=== PATIENT | male | born 1950 | race Caucasian/White ===

== ENCOUNTER 2016-04-24 13:10 | Outpatient (CLI) | payer MEDICARE, OTHER | END 2016-04-24 13:11 | disposition home or self-care (01) | DX: B35.1 Tinea unguium (principal); L03.011 Cellulitis of right finger ==

== ENCOUNTER 2016-10-08 08:00 | Outpatient (CLI) | payer MEDICARE, OTHER ==
[2016-10-08 19:11] LABS: BASOPHILS % (AUTO) 1.1 %; EOSINOPHILS # (AUTO) 0.1 10^3/uL (0.0-0.7); EOSINOPHILS % (AUTO) 2.9 %; HCT - HEMATOCRIT 32.3 % (42.0-52.0); HGB - HEMOGLOBIN 10.7 g/dL (14.0-18.0); LYMPHOCYTES # (AUTO) 0.7 10^3/uL (1.5-3.5); LYMPHOCYTES % (AUTO) 16.9 %; MEAN CORPUSCULAR HEMOGLOBIN 33.5 pg (27.0-31.0); MEAN CORPUSCULAR HGB CONC 33.1 g/dL (32.0-36.0); MEAN CORPUSCULAR VOLUME 101.1 fL (80.0-94.0); MEAN PLATELET VOLUME 9.8 fL (7.4-11.4); MONOCYTES # (AUTO) 0.5 10^3/uL (0.0-1.0); MONOCYTES % (AUTO) 10.8 %; NEUTROPHILS % (AUTO) 68.3 %; RED BLOOD COUNT 3.19 10^6/uL (4.70-6.10); RED CELL DISTRIBUTION WIDTH 13.8 % (12.0-15.0); UNCORRECTED WHITE BLOOD COUNT 4.4 x10^3/uL; WHITE BLOOD COUNT 4.4 x10^3/uL (4.8-10.8)
[2016-10-08 20:54] LABS: HEMOGLOBIN A1C 0.28 g/dL
== END 2016-10-08 08:01 | disposition home or self-care (01) ==
LOC: LAB.S 08:00
PROVIDERS: ATTEND Nurse Practitioner Family
DX: E10.9 Type 1 diabetes mellitus without complications (principal); D64.9 Anemia, unspecified; Z12.5 Encounter for screening for malignant neoplasm of prostate; N62 Hypertrophy of breast; M10.9 Gout, unspecified
CPT/HCPCS: 36415; 82043; 82728; 83036; 84403; 84550; 85025; G0103; 84153

== ENCOUNTER 2017-07-23 08:26 | Outpatient (CLI) | payer MEDICARE, OTHER ==
[2017-07-23 10:23] LABS: BASOPHILS % (AUTO) 1.3 %; EOSINOPHILS % (AUTO) 1.1 %; HGB - HEMOGLOBIN 10.8 g/dL (14.0-18.0); LYMPHOCYTES % (AUTO) 28.5 %; MEAN CORPUSCULAR HEMOGLOBIN 34.5 pg (27.0-31.0); MEAN CORPUSCULAR HGB CONC 34.8 g/dL (32.0-36.0); MEAN CORPUSCULAR VOLUME 99.2 fL (80.0-94.0); MEAN PLATELET VOLUME 8.6 fL (7.4-11.4); MONOCYTES # (AUTO) 0.5 10^3/uL (0.0-1.0); MONOCYTES % (AUTO) 13.3 %; NEUTROPHILS # (AUTO) 1.9 10^3/uL (1.5-6.6); NEUTROPHILS % (AUTO) 55.8 %; PLT - PLATELET COUNT 234 10^3/uL (130-450); RED BLOOD COUNT 3.13 10^6/uL (4.70-6.10); RED CELL DISTRIBUTION WIDTH 12.7 % (12.0-15.0); WHITE BLOOD COUNT 3.5 x10^3/uL (4.8-10.8)
[2017-07-23 10:59] LABS: ALBUMIN 4.4 g/dL (3.2-5.5); ALBUMIN/GLOBULIN RATIO 1.5 (1.0-2.2); ALKALINE PHOSPHATASE 52 IU/L (42-121); ALT ALANINE AMINOTRANSFERASE 18 IU/L (10-60); AST ASPARTATE AMINOTRANSFERASE 26 IU/L (10-42); BILIRUBIN,TOTAL 0.8 mg/dL (0.2-1.0); BUN - BLOOD UREA NITROGEN 11 mg/dL (6-20); CARBON DIOXIDE - CO2 28 mmol/L (21-32); CHLORIDE 94 mmol/L (101-111); CHOL/HDL RATIO 4.9 (<5.0); CHOLESTEROL 148 mg/dL; CREATININE 0.4 mg/dL (0.6-1.2); GFR - MDRD 214 (>89); GLUCOSE 63 mg/dL (70-100); HDL CHOLESTEROL 30 mg/dL; LDL CHOLESTEROL,CALCULATED 107 mg/dL; LDL/HDL RATIO 3.6 (<3.6); SODIUM 127 mmol/L (135-145); TOTAL PROTEIN 7.4 g/dL (6.7-8.2); VLDL CHOLESTEROL 11 mg/dL
[2017-07-23 11:26] LABS: HB2 TOTAL 11.8 g/dL; HEMOGLOBIN A1C 0.36 g/dL; HEMOGLOBIN A1C % 4.9 % (4.6-6.2)
== END 2017-07-23 08:27 | disposition home or self-care (01) ==
LOC: LAB.F 08:26
PROVIDERS: ATTEND Nurse Practitioner Family
DX: E10.9 Type 1 diabetes mellitus without complications (principal); I51.9 Heart disease, unspecified; D53.1 Other megaloblastic anemias, not elsewhere classified
CPT/HCPCS: 36415; 80053; 80061; 83036; 83721; 85025

== ENCOUNTER 2017-07-30 07:40 | Outpatient (CLI) | payer MEDICARE, OTHER | END 2017-07-30 07:41 | disposition home or self-care (01) | LOC: LAB.F 07:40 | PROVIDERS: ATTEND Nurse Practitioner Family | DX: E87.1 Hypo-osmolality and hyponatremia (principal); D53.9 Nutritional anemia, unspecified | CPT/HCPCS: 83935; 84300 ==

== ENCOUNTER 2017-08-02 08:00 | Outpatient (CLI) | payer MEDICARE, OTHER | END 2017-08-02 23:59 | LOC: LAB.R 08:00 | PROVIDERS: ATTEND Nurse Practitioner Family | DX: D53.9 Nutritional anemia, unspecified (principal) | CPT/HCPCS: 82270 ==

== ENCOUNTER 2017-08-12 10:50 | Outpatient (CLI) | payer MEDICARE, OTHER ==
[2017-08-12 19:10] LABS: BUN - BLOOD UREA NITROGEN 12 mg/dL (6-20); CALCIUM 8.9 mg/dL (8.5-10.3); CARBON DIOXIDE - CO2 28 mmol/L (21-32); CHLORIDE 95 mmol/L (101-111); CREATININE 0.5 mg/dL (0.6-1.2); GFR - MDRD 165 (>89); GLUCOSE 72 mg/dL (70-100); SODIUM 129 mmol/L (135-145)
== END 2017-08-12 10:51 | disposition home or self-care (01) ==
LOC: LAB.F 10:50
PROVIDERS: ATTEND Nurse Practitioner Family
DX: N62 Hypertrophy of breast (principal); E29.1 Testicular hypofunction; Z13.29 Encounter for screening for other suspected endocrine disorder; E87.1 Hypo-osmolality and hyponatremia
CPT/HCPCS: 36415; 80048; 84403; 84443

== ENCOUNTER 2017-09-02 09:48 | Outpatient (CLI) | payer MEDICARE, OTHER ==
[2017-09-02 18:03] LABS: CALCIUM 9.3 mg/dL (8.5-10.3); CREATININE 0.5 mg/dL (0.6-1.2); URIC ACID 4.8 mg/dL (2.6-7.2)
== END 2017-09-02 09:49 | disposition home or self-care (01) ==
LOC: LAB.F 09:48
PROVIDERS: ATTEND Nurse Practitioner Family
DX: E87.1 Hypo-osmolality and hyponatremia (principal); M10.9 Gout, unspecified
CPT/HCPCS: 36415; 80048; 84550

== ENCOUNTER 2018-01-22 07:25 | Outpatient (CLI) | payer MEDICARE, OTHER ==
[2018-01-22 12:00] LABS: HEMOGLOBIN A1C 0.16 g/dL
[2018-01-22 13:13] LABS: HEMOGLOBIN A1C % < 4.0 % (4.6-6.2)
[2018-01-22 13:17] LABS: ESTIMATED AVERAGE GLUCOSE < 68 (70-100)
== END 2018-01-22 07:26 | disposition home or self-care (01) ==
LOC: LAB.F 07:25
PROVIDERS: ATTEND Nurse Practitioner Family
DX: E10.9 Type 1 diabetes mellitus without complications (principal)
CPT/HCPCS: 36415; 83036

== ENCOUNTER 2018-02-18 10:20 | Outpatient (CLI) | payer MEDICARE, OTHER | END 2018-02-18 10:21 | disposition home or self-care (01) | LOC: LAB.R 10:20 | PROVIDERS: ATTEND Nurse Practitioner Family | DX: E10.9 Type 1 diabetes mellitus without complications (principal) | CPT/HCPCS: 82043 ==

== ENCOUNTER 2018-03-31 08:24 | Outpatient (CLI) | payer MEDICARE, OTHER ==
[2018-03-31 18:47] LABS: HB2 TOTAL 11.1 g/dL; HEMOGLOBIN A1C 0.23 g/dL
== END 2018-03-31 23:59 | disposition home or self-care (01) ==
LOC: LAB.S 08:24
PROVIDERS: ATTEND Nurse Practitioner
DX: R53.83 Other fatigue (principal); D53.9 Nutritional anemia, unspecified; E10.9 Type 1 diabetes mellitus without complications
CPT/HCPCS: 36415; 82306; 82607; 83036

== ENCOUNTER 2018-08-11 08:07 | Outpatient (CLI) | payer MEDICARE, OTHER ==
[2018-08-11 18:48] LABS: CALCIUM 8.9 mg/dL (8.5-10.3); CREATININE 0.5 mg/dL (0.6-1.2)
[2018-08-11 20:02] LABS: HB2 TOTAL 10.9 g/dL; HEMOGLOBIN A1C 0.32 g/dL; HEMOGLOBIN A1C % 4.8 % (4.6-6.2)
== END 2018-08-11 08:08 | disposition home or self-care (01) ==
LOC: LAB.F 08:07
PROVIDERS: ATTEND Nurse Practitioner
DX: E10.9 Type 1 diabetes mellitus without complications (principal); E29.1 Testicular hypofunction
CPT/HCPCS: 36415; 80048; 82043; 83036; 84403

== ENCOUNTER 2018-11-20 06:51 | Outpatient (CLI) | payer MEDICARE, OTHER ==
[2018-11-20 10:34] LABS: ALBUMIN 4.1 g/dL (3.2-5.5); ALBUMIN/GLOBULIN RATIO 1.2 (1.0-2.2); ALKALINE PHOSPHATASE 70 IU/L (42-121); ALT ALANINE AMINOTRANSFERASE 20 IU/L (10-60); AST ASPARTATE AMINOTRANSFERASE 27 IU/L (10-42); BILIRUBIN,TOTAL 0.7 mg/dL (0.2-1.0); BUN - BLOOD UREA NITROGEN 16 mg/dL (6-20); CALCIUM 9.3 mg/dL (8.5-10.3); CARBON DIOXIDE - CO2 27 mmol/L (21-32); CHLORIDE 98 mmol/L (101-111); CHOL/HDL RATIO 3.5 (<5.0); CHOLESTEROL 127 mg/dL; CREATININE 0.6 mg/dL (0.6-1.2); GFR - MDRD 134 (>89); GLUCOSE 99 mg/dL (70-100); HDL CHOLESTEROL 36 mg/dL; LDL CHOLESTEROL,CALCULATED 82 mg/dL; LDL/HDL RATIO 2.3 (<3.6); SODIUM 135 mmol/L (135-145); TOTAL PROTEIN 7.5 g/dL (6.7-8.2); VLDL CHOLESTEROL 9 mg/dL
[2018-11-20 10:45] LABS: HB2 TOTAL 10.4 g/dL; HEMOGLOBIN A1C 0.37 g/dL; HEMOGLOBIN A1C % 5.4 % (4.6-6.2)
[2018-11-20 11:00] LABS: CREATININE,URINE 22.7 mg/dL
[2018-11-20 11:02] LABS: MICROALBUMIN,URINE < 0.2 mg/dL (0-300.0)
== END 2018-11-20 06:52 | disposition home or self-care (01) ==
LOC: LAB.S 06:51
PROVIDERS: ATTEND Registered Nurse
DX: E10.9 Type 1 diabetes mellitus without complications (principal)
CPT/HCPCS: 36415; 80053; 80061; 82043; 82570; 83036; 83721; 84443

== ENCOUNTER 2019-10-13 06:58 | Outpatient (CLI) | payer MEDICARE, OTHER ==
[2019-10-13 15:23] LABS: BASOPHILS % (AUTO) 0.5 %; HGB - HEMOGLOBIN 9.7 g/dL (14.0-18.0); LYMPHOCYTES # (AUTO) 0.7 10^3/uL (1.5-3.5); LYMPHOCYTES % (AUTO) 18.3 %; MEAN CORPUSCULAR HEMOGLOBIN 34.3 pg (27.0-31.0); MEAN CORPUSCULAR HGB CONC 34.4 g/dL (32.0-36.0); MEAN CORPUSCULAR VOLUME 99.6 fL (80.0-94.0); MONOCYTES # (AUTO) 0.5 10^3/uL (0.0-1.0); MONOCYTES % (AUTO) 11.8 %; NEUTROPHILS # (AUTO) 2.6 10^3/uL (1.5-6.6); NEUTROPHILS % (AUTO) 68.1 %; PLT - PLATELET COUNT 232 10^3/uL (130-450); RED BLOOD COUNT 2.83 10^6/uL (4.70-6.10); RED CELL DISTRIBUTION WIDTH 11.9 % (12.0-15.0); WHITE BLOOD COUNT 3.8 x10^3/uL (4.8-10.8)
[2019-10-13 15:52] LABS: ALBUMIN 4.1 g/dL (3.2-5.5); ALBUMIN/GLOBULIN RATIO 1.4 (1.0-2.2); ALKALINE PHOSPHATASE 59 IU/L (42-121); ALT ALANINE AMINOTRANSFERASE 18 IU/L (10-60); AST ASPARTATE AMINOTRANSFERASE 20 IU/L (10-42); BILIRUBIN,TOTAL 0.6 mg/dL (0.2-1.0); BUN - BLOOD UREA NITROGEN 13 mg/dL (6-20); CALCIUM 8.8 mg/dL (8.5-10.3); CARBON DIOXIDE - CO2 27 mmol/L (21-32); CHLORIDE 93 mmol/L (101-111); CHOL/HDL RATIO 4.9 (<5.0); CHOLESTEROL 137 mg/dL; CREATININE 0.6 mg/dL (0.6-1.2); GLUCOSE 213 mg/dL (70-100); HDL CHOLESTEROL 28 mg/dL; LDL CHOLESTEROL,CALCULATED 97 mg/dL; LDL/HDL RATIO 3.5 (<3.6); SODIUM 127 mmol/L (135-145); VLDL CHOLESTEROL 12 mg/dL
[2019-10-13 16:00] LABS: CRP - C-REACTIVE PROTEIN < 1.0 mg/dL (0-1.0)
[2019-10-13 16:11] LABS: HB2 TOTAL 9.8 g/dL; HEMOGLOBIN A1C 0.31 g/dL
== END 2019-10-13 06:59 | disposition home or self-care (01) ==
LOC: LAB.S 06:58
PROVIDERS: ATTEND Registered Nurse
DX: E10.51 Type 1 diabetes mellitus with diabetic peripheral angiopathy without gangrene (principal)
CPT/HCPCS: 36415; 80053; 80061; 83036; 83721; 84443; 85025; 86140

== ENCOUNTER 2020-05-06 09:21 | Outpatient (CLI) | payer MEDICARE, OTHER ==
[2020-05-06 14:26] LABS: BASOPHILS % (AUTO) 0.9 %; EOSINOPHILS # (AUTO) 0.1 10^3/uL (0.0-0.7); EOSINOPHILS % (AUTO) 1.5 %; HGB - HEMOGLOBIN 9.9 g/dL (14.0-18.0); LYMPHOCYTES # (AUTO) 1.2 10^3/uL (1.5-3.5); LYMPHOCYTES % (AUTO) 26.4 %; MEAN CORPUSCULAR HEMOGLOBIN 32.8 pg (27.0-31.0); MEAN CORPUSCULAR HGB CONC 32.7 g/dL (32.0-36.0); MEAN CORPUSCULAR VOLUME 100.3 fL (80.0-94.0); MEAN PLATELET VOLUME 11.9 fL (7.4-11.4); MONOCYTES # (AUTO) 0.5 10^3/uL (0.0-1.0); MONOCYTES % (AUTO) 10.3 %; NEUTROPHILS # (AUTO) 2.8 10^3/uL (1.5-6.6); NEUTROPHILS % (AUTO) 60.7 %; PLT - PLATELET COUNT 205 10^3/uL (130-450); RED BLOOD COUNT 3.02 10^6/uL (4.70-6.10); RED CELL DISTRIBUTION WIDTH 13.2 % (12.0-15.0); WHITE BLOOD COUNT 4.7 x10^3/uL (4.8-10.8)
[2020-05-06 15:13] LABS: CALCIUM 9.2 mg/dL (8.5-10.3); CREATININE 0.6 mg/dL (0.6-1.2)
[2020-05-06 15:37] LABS: CREATININE,URINE 14.6 mg/dL; MICROALBUM/CREATININE RATIO,UR 13.7 ug/mg (<30.0); MICROALBUMIN,URINE 0.2 mg/dL (0-300.0)
[2020-05-06 18:29] LABS: HEMOGLOBIN A1c% 4.4 % (4.27-6.07)
== END 2020-05-06 09:22 | disposition home or self-care (01) ==
LOC: LAB.S 09:21
PROVIDERS: ATTEND Registered Nurse
DX: E10.59 Type 1 diabetes mellitus with other circulatory complications (principal)
CPT/HCPCS: 36415; 80048; 82043; 82570; 83036; 85025

== ENCOUNTER 2022-08-07 13:55 | Outpatient (CLI) | payer MEDICARE, OTHER ==
--- NOTE | 2022-08-07 18:52 | Ultrasound Report ---
PROCEDURE: Pelvic Limited or F/U INDICATIONS: INGUINAL HERNIA TECHNIQUE: Real-time transabdominal scanning was performed of the pelvic organs, with image documentation. COMPARISON: None. FINDINGS/IMPRESSION: At the area of clinical concern, prominent bowel is noted with no visible reduction. Consider CT to f urther evaluate extent of clinically appreciated hernia defect if needed. Patient declined testicular ultrasound. Reviewed by: Danny Jolly MD on 08/07/2022 6:51 PM PDT Approved by: Danny Jolly MD on 08/07/2022 6:51 PM PDT Station ID: [id number]
== END 2022-08-07 13:56 | disposition home or self-care (01) ==
LOC: DI 13:55
PROVIDERS: ATTEND Nurse Practitioner
DX: K40.90 Unilateral inguinal hernia, without obstruction or gangrene, not specified as recurrent (principal)

== ENCOUNTER 2022-08-28 09:37 | Outpatient (CLI) | payer MEDICARE, OTHER ==
[2022-08-28] MEDS ORDERED: iohexoL-300 100 ML VIAL ONE (09:50)
[2022-08-28 09:57] LABS: CREATININE 0.5 mg/dL (0.6-1.2)
--- NOTE | 2022-08-28 14:32 | CT Report ---
PROCEDURE: ABDOMEN/PELVIS W INDICATIONS: ABN US, INGUINAL HERNIA CONTRAST: 100ml OMnipaque 300 TECHNIQUE: After the administration of oral and intravenous contrast, 5 mm thick sections acquired from the diap hragms to the symphysis. 5 mm thick coronal and sagittal reformats were acquired. For radiation dos e reduction, the following was used: automated exposure control, adjustment of mA and/or kV accordin g to patient size. COMPARISON: Limited pelvic ultrasound dated 08/07/2022 FINDINGS: Image quality: Excellent. Lung bases and heart: Severe coronary artery calcifications. Liver: No solid mass. Small low density lesions are consistent with cysts versus hemangiomata. Gallbladder and biliary tree: Spleen: No splenomegaly. Pancreas: No pancreatic ductal dilation. Adrenals: No adrenal nodule. Kidneys and ureters: No hydronephrosis. No renal cystic lesion which requires follow up. No solid mas s. Bowel and peritoneum: No bowel distension. No pathologic free fluid. There is a large fecal load. Lymph nodes: Paucity of intra-abdominal fat makes it difficult to exclude adenopathy. No central or r etroperitoneal adenopathy. Vessels: No infrarenal aortic aneurysm. PELVIS Reproductive organs: Unremarkable. Bladder: No abnormal wall thickening, accounting for underdistension. Pelvic lymph nodes: No pelvic adenopathy by size criteria. Bones: No aggressive osseous abnormality. Other: Question small fat-containing left inguinal hernia. IMPRESSION: 1. Very large fecal load. 2. Question small fat-containing left inguinal hernia. Reviewed by: Kendall Carmona MD on 08/28/2022 2:30 PM PDT Approved by: Kendall Carmona MD on 08/28/2022 2:30 PM PDT Station ID: [id number]
[2022-08-28] MEDS ORDERED: iohexoL-300 100 ML VIAL IVP ONE (15:29)
[2022-08-28] MEDS ORDERED: DIATRIZOATE MEGLU/DIATRIZO SOD 30 ML BOTTLE PO ONE (15:29)
== END 2022-08-28 09:38 | disposition home or self-care (01) ==
LOC: LAB 09:37
PROVIDERS: ATTEND Nurse Practitioner
DX: K40.90 Unilateral inguinal hernia, without obstruction or gangrene, not specified as recurrent (principal); R93.89 Abnormal findings on diagnostic imaging of other specified body structures
CPT/HCPCS: 36415; 74177; 82565; Q9963; Q9967

== ENCOUNTER 2022-09-03 07:42 | Outpatient (CLI) | payer MEDICARE, OTHER ==
[2022-09-03 14:28] LABS: BASOPHILS % (AUTO) 0.5 %; EOSINOPHILS # (AUTO) 0.1 10^3/uL (0.0-0.7); EOSINOPHILS % (AUTO) 1.4 %; HCT - HEMATOCRIT 32.4 % (42.0-52.0); HGB - HEMOGLOBIN 10.6 g/dL (14.0-18.0); LYMPHOCYTES # (AUTO) 1.2 10^3/uL (1.5-3.5); LYMPHOCYTES % (AUTO) 33.2 %; MEAN CORPUSCULAR HEMOGLOBIN 33.2 pg (27.0-31.0); MEAN CORPUSCULAR HGB CONC 32.7 g/dL (32.0-36.0); MEAN CORPUSCULAR VOLUME 101.6 fL (80.0-94.0); MEAN PLATELET VOLUME 11.8 fL (7.4-11.4); MONOCYTES # (AUTO) 0.4 10^3/uL (0.0-1.0); MONOCYTES % (AUTO) 10.6 %; PLT - PLATELET COUNT 205 10^3/uL (130-450); RED BLOOD COUNT 3.19 10^6/uL (4.70-6.10); RED CELL DISTRIBUTION WIDTH 12.7 % (12.0-15.0); WHITE BLOOD COUNT 3.7 x10^3/uL (4.8-10.8)
[2022-09-03 14:33] LABS: PT - PROTHROMBIN TIME 11.3 secs (9.9-12.6)
[2022-09-03 14:37] LABS: ALBUMIN 4.1 g/dL (3.2-5.5); ALBUMIN/GLOBULIN RATIO 1.2 (1.0-2.2); BILIRUBIN,TOTAL 0.6 mg/dL (0.2-1.0); CALCIUM 9.2 mg/dL (8.5-10.3); CREATININE 0.6 mg/dL (0.6-1.2); POTASSIUM 5.2 mmol/L (3.5-5.0); TOTAL PROTEIN 7.4 g/dL (6.7-8.2)
== END 2022-09-03 07:43 | disposition home or self-care (01) ==
LOC: LAB.S 07:42
PROVIDERS: ATTEND Surgery
DX: K40.90 Unilateral inguinal hernia, without obstruction or gangrene, not specified as recurrent (principal)
CPT/HCPCS: 36415; 80053; 85025; 85610

== ENCOUNTER 2022-12-19 07:34 | Outpatient (CLI) | payer MEDICARE, OTHER | END 2022-12-19 07:35 | disposition home or self-care (01) | LOC: DI 07:34 | PROVIDERS: ATTEND Registered Nurse | DX: Z01.818 Encounter for other preprocedural examination (principal); I20.9 Angina pectoris, unspecified; I35.0 Nonrheumatic aortic (valve) stenosis; I34.0 Nonrheumatic mitral (valve) insufficiency; I51.9 Heart disease, unspecified; I51.7 Cardiomegaly | CPT/HCPCS: 93306 ==

== ENCOUNTER 2023-02-07 06:13 | Day surgery (SDC) | payer MEDICARE, OTHER ==
[2023-02-07] MEDS ORDERED: LACTATED RINGERS 1,000 ML IV ONE ×2 (06:22→08:48)
[2023-02-07] MEDS ORDERED: ceFAZolin 2 GM VIAL ONE (06:29)
[2023-02-07] MEDS ORDERED: PROPOFOL 500 MG/50 ML 500 MG/50 ML VIAL ONE (06:46)
[2023-02-07] MEDS ORDERED: DEXTROSE 50% ABBOJECT 25 GM/50 ML SYRINGE IVP ONE (07:11)
[2023-02-07] MEDS ORDERED: NALOXONE 0.4 MG/ML VIAL IVP PRN (07:13)
[2023-02-07] MEDS ORDERED: fentaNYL 100 MCG/2 ML VIAL IVP PRN (07:13)
[2023-02-07] MEDS ORDERED: ATROPINE ABBOJECT 1 MG/10 ML SYRINGE IVP PRN (07:13)
[2023-02-07] MEDS ORDERED: ONDANSETRON 4 MG/2 ML VIAL IVP PRN (07:13)
[2023-02-07] MEDS ORDERED: HYDROmorphone 0.5 MG/0.5 ML SYRINGE IVP PRN (07:13)
[2023-02-07] MEDS ORDERED: ePHEDrine 50 MG/ML VIAL IVP PRN (07:13)
--- NOTE | 2023-02-07 07:13 | ANESTHESIA ---
Pre-Anesthesia VS, & Labs - Diagnosis L inguinal hernia - Procedure L inguinal hernia repair Vital Signs: Temp Pulse Resp BP Pulse Ox O2 Flow Rate 36.9 C 54 L 12 137/88 H 97 02/07/23 06:48 02/07/23 06:48 02/07/23 06:48 02/07/23 06:48 02/07/23 06:48 Height: 5 ft 11 in Weight (kg): 69 kg Body Mass Index: 21.2 BMI Classification: Normal - NPO >8 hours - Lab Results Current Lab Results: Laboratory Tests 02/07/23 06:53: POC Whole Bld Glucose 52 L* Lab results reviewed: Yes Home Medications and Allergies Insulin Aspart (Vial) [NovoLOG] 25 units SQ DAILY 09/16/12 Ascorbic Acid [Vitamin C] 6 - 10 gm PO DAILY 09/25/22 Multivitamin 1 each PO DAILY 09/25/22 Triamcinolone 0.5% Cream [Kenalog 0.5% Cream] 1 applic TOP BID PRN 09/25/22 Allergies/Adverse Reactions: Allergies Allergy/AdvReac Type Severity Reaction Status Date / Time gluten AdvReac diarrhea, Verified 09/25/22 14:00 bloating Anes History & Medical History - Anesthetic History Anesthesia Complications: reports: No previous complications Family history of Anesthesia Complications: Denies Family history of Malignant Hyperthermia: Denies - Medical History Cardiovascular: reports: Peripheral Vascular Disease, Angina (hx of angina), Murmur, Valve disorder (mild ), Other Pulmonary: reports: None Gastrointestinal: reports: None Urinary: reports: Benign prostate hypertrophy, Nocturia Musculoskeletal: reports: Gout Endocrine/Autoimmune: reports: Type 1 diabetes Blood Disorders: reports: None Skin: reports: Eczema, Other Psychosocial: reports: No issues indicated - Surgical History General: reports: Appendectomy, Colonoscopy Orthopedic: reports: Other Dermatologic: reports: Skin cancer surgery Exam General: Alert, Oriented x3, Cooperative Dental: WNL Mouth Openin Fingerbreadth Neck Mobility: Normal Mallampati classification: I Thyromental Distance: 4-6 cm Respiratory: Lungs clear Cardiovascular: Regular rate Plan Anesthesia Type: General, MAC Consent for Procedure(s) Verified and Reviewed: Yes Code Status: Attempt Resuscitation ASA classification: 3-Severe systemic disease Is this case an emergency?: Yes
[2023-02-07] MEDS ORDERED: LIDOCAINE 1%-EPI 1:100000 20 ML MDV ONE (07:18)
[2023-02-07] MEDS ORDERED: BUPIVACAINE 0.25% PF 30 ML VIAL ONE ×2 (07:18→07:30)
--- NOTE | 2023-02-07 07:21 | HISTORY & PHYSICAL EXAMINATION ---
Chief Complaint - Chief Complaint Chief Complaint: painful left groin bulge History of Present Illness - History Obtained From Records Reviewed: yes History obtained from: pt Exam Limitations: none - History of Present Illness HPI Comment/Other: left inguinal hernia. getting bigger and more symptomatic History - Past Medical History Cardiovascular: reports: Peripheral Vascular Disease, Angina (hx of angina), Murmur, Valve disorder (mild ), Other Respiratory: reports: None Endocrine/Autoimmune: reports: Type 1 diabetes GI: reports: None : reports: Benign prostate hypertrophy, Nocturia HEENT: reports: None Psych: reports: Anxiety Musculoskeletal: reports: Gout Derm: reports: Eczema, Other MRSA Hx?: No - Past Surgical History General: reports: Appendectomy, Colonoscopy Ortho: reports: Other Derm: reports: Skin cancer surgery Meds/Allgy - Home Medications Home Medications: Ambulatory Orders Medication Instructions Recorded Confirmed Insulin Aspart (Vial) [NovoLOG] 25 units SQ DAILY 09/16/12 02/01/23 Ascorbic Acid [Vitamin C] 6 - 10 gm PO DAILY 09/25/22 02/01/23 Multivitamin 1 each PO DAILY 09/25/22 02/01/23 Triamcinolone 0.5% Cream [Kenalog 1 applic TOP BID PRN 09/25/22 02/01/23 0.5% Cream] - Allergies Allergies/Adverse Reactions: Allergies Allergy/AdvReac Type Severity Reaction Status Date / Time gluten AdvReac diarrhea, Verified 09/25/22 14:00 bloating Review of Systems - Other Findings Other Findings: 10 pt ros as above otherwise unremarkable Exam - Vital Signs Vital Signs: Vital Signs x48h Temp Pulse Resp BP Pulse Ox 02/07/23 06:48 36.9 C 54 L 12 137/88 H 97 - Physical Exam General Appearance: positive: No acute distress, Alert ENT: positive: No signs of dehydration Neck: positive: No JVD, Trachea midline Respiratory: positive: Breath sounds nml Cardiovascular: positive: Regular rate & rhythm Abdomen: positive: Other (large left inguinal hernia present) Neurologic/Psychiatric: positive: Oriented x3 Conclusion/Plan - Problem List (1) Inguinal hernia of left side without obstruction or gangrene Conclusion/Plan: plan open repair with mesh. parq held and consent obtained - Lab Results Lab results reviewed: Yes
[2023-02-07] MEDS ORDERED: fentaNYL 100 MCG/2 ML VIAL ONE (07:31)
[2023-02-07] MEDS ORDERED: ONDANSETRON 4 MG/2 ML VIAL ONE (07:55)
[2023-02-07] MEDS ORDERED: BUPIVACAINE 0.25% PF 30 ML VIAL SUBQ ONE (07:56)
[2023-02-07] MEDS ORDERED: LIDOCAINE-MPF 1% 30 ML VIAL SUBQ ONE (07:56)
[2023-02-07] MEDS ORDERED: LACTATED RINGERS 1,000 ML IV SCH (08:00)
[2023-02-07] MEDS ORDERED: oxyCODONE 5 MG TABLET PO PRN (08:48)
--- NOTE | 2023-02-07 08:54 | OPERATIVE REPORT ---
Operative Report - General Procedure Date: 02/07/23 Planned Procedure: open left inguinal hernia repair with mesh Pre-Op Diagnosis: left inguinal hernia Procedure Performed: open left inguinal hernia repair with mesh Post Op Diagnosis: large indirect inguinal hernia - Procedure Note Primary Surgeon: marci lawrence Anesthesia Technique: Local, MAC Pathology: tissue not sent Estimated Blood Loss (mL): 2 Drain/Tube Type: Other (none) Indications: painful hernia bulge Findings: as above Complications: none - Other Other Information/Narrative: Patient was properly identified brought to the operating room and placed in supine position. Sequential compression devices were placed. Monitored anesthesia care and sedation was given . He was prepped and draped in a sterile fashion and given preoperative antibiotics. Local anesthetic was given throughout the procedure. A 5 cm incision was made in the direction of Moise's lines just cephalad of the pubic tubercle. Dissection proceeded with cutting current cautery. The superficial epigastric vein was identified clamped divided and tied with 3-0 Vicryl. Dissection proceeded down to the aponeurosis. The aponeurosis was opened in the direction of its fibers and extended to the external ring. Cord structures were mobilized and brought up. The nerves were carefully protected and preserved. Cord structures were mobilized and brought up. An indirect inguinal hernia was present. The hernia sac was mobilized off the cord structures and suture ligated with 2 O silk and further reduced. Preperitoneal fat was removed. The base was tied with 2 O vicryl. Polypropylene mesh was cut to size and with tails. The mesh was secured with multiple interrupted 0 Ethibond sutures. She was placed along the pubic tubercle, Maico's ligament area and along the shelving border of Poupart's ligament. Sutures were placed medially along the abdominal wall musculature and internal oblique. The medial tail of the mesh was secured to the shelving border of Poupart's ligament with 3 interrupted 0 ethibond sutures recreating the internal ring of appropriate size. Aponeurosis was closed with a running 2- 0 Vicryl suture. Scarpas fascia was closed with interrupted 3-0 Vicryl suture. Buried interrupted subdermal 3-0 Vicryl sutures were then placed. Skin was closed with a running 4-0 Monocryl subcuticular suture. Dressing was applied. Patient was awakened and brought to recovery in good condition.
[2023-02-07 09:35] VITALS: O2SAT 98
--- NOTE | 2023-02-07 09:49 | ANESTHESIA POST OP EVALUATION ---
Anesthesia Post Eval - Post Anesthesia Eval Vitals: Last Vital Signs Temp 36.5 C 02/07/23 09:30 Pulse 62 02/07/23 09:30 Resp 12 02/07/23 09:30 BP 128/72 02/07/23 09:30 Pulse Ox 98 02/07/23 09:30 O2 Flow Rate CV Function Including HR & BP: Stable Pain Control: Satisfactory Nausea & Vomiting: Negative Mental Status: Baseline Respiratory Status: Airway Patent Hydration Status: Satisfactory Anesthesia Complications: None
[2023-02-07 10:22] VITALS: BP 130/72
== END 2023-02-07 06:14 | disposition home or self-care (01) ==
LOC: SDS 06:13
PROVIDERS: ATTEND Surgery
DX: K40.90 Unilateral inguinal hernia, without obstruction or gangrene, not specified as recurrent (principal); E10.51 Type 1 diabetes mellitus with diabetic peripheral angiopathy without gangrene; Z79.4 Long term (current) use of insulin
CPT/HCPCS: 49505; C1781; J7120

== ENCOUNTER 2023-11-01 07:02 | Outpatient (CLI) | payer MEDICARE, OTHER ==
[2023-11-01 14:40] LABS: BASOPHILS % (AUTO) 0.7 %; EOSINOPHILS # (AUTO) 0.1 10^3/uL (0.0-0.7); EOSINOPHILS % (AUTO) 1.4 %; HCT - HEMATOCRIT 33.7 % (42.0-52.0); HGB - HEMOGLOBIN 11.1 g/dL (14.0-18.0); LYMPHOCYTES # (AUTO) 1.4 10^3/uL (1.5-3.5); LYMPHOCYTES % (AUTO) 34.3 %; MEAN CORPUSCULAR HEMOGLOBIN 32.7 pg (27.0-31.0); MEAN CORPUSCULAR HGB CONC 32.9 g/dL (32.0-36.0); MEAN CORPUSCULAR VOLUME 99.4 fL (80.0-94.0); MONOCYTES # (AUTO) 0.4 10^3/uL (0.0-1.0); MONOCYTES % (AUTO) 10.1 %; NEUTROPHILS # (AUTO) 2.2 10^3/uL (1.5-6.6); NEUTROPHILS % (AUTO) 53.3 %; PLT - PLATELET COUNT 269 10^3/uL (130-450); RED BLOOD COUNT 3.39 10^6/uL (4.70-6.10); RED CELL DISTRIBUTION WIDTH 12.3 % (12.0-15.0); WHITE BLOOD COUNT 4.1 x10^3/uL (4.8-10.8)
[2023-11-01 14:46] LABS: ALBUMIN 4.6 g/dL (3.2-5.5); ALBUMIN/GLOBULIN RATIO 1.3 (1.0-2.2); ALKALINE PHOSPHATASE 72 IU/L (42-121); ALT ALANINE AMINOTRANSFERASE 17 IU/L (10-60); AST ASPARTATE AMINOTRANSFERASE 20 IU/L (10-42); BILIRUBIN,TOTAL 0.5 mg/dL (0.2-1.0); BUN - BLOOD UREA NITROGEN 10 mg/dL (6-20); CALCIUM 9.7 mg/dL (8.5-10.3); CARBON DIOXIDE - CO2 28 mmol/L (21-32); CHLORIDE 95 mmol/L (101-111); CHOL/HDL RATIO 4.5 (<5.0); CHOLESTEROL 145 mg/dL; CREATININE 0.5 mg/dL (0.6-1.3); GFR - MDRD 163 (>89); GLUCOSE 152 mg/dL (74-104); HDL CHOLESTEROL 32 mg/dL; LDL CHOLESTEROL,CALCULATED 94 mg/dL; LDL/HDL RATIO 2.9 (<3.6); POTASSIUM 4.5 mmol/L (3.5-4.5); SODIUM 128 mmol/L (135-145); TOTAL PROTEIN 8.2 g/dL (6.4-8.9); TRIGLYCERIDES 94 mg/dL; VLDL CHOLESTEROL 19 mg/dL
[2023-11-01 15:03] LABS: THYROID STIMULATING HORMONE 2.18 uIU/mL (0.34-5.60)
== END 2023-11-01 07:03 | disposition home or self-care (01) ==
LOC: LAB.S 07:02
PROVIDERS: ATTEND Registered Nurse
DX: E11.9 Type 2 diabetes mellitus without complications (principal); Z13.228 Encounter for screening for other metabolic disorders; Z13.220 Encounter for screening for lipoid disorders; Z13.29 Encounter for screening for other suspected endocrine disorder; Z13.0 Encounter for screening for diseases of the blood and blood-forming organs and certain disorders involving the immune mechanism
CPT/HCPCS: 36415; 80053; 80061; 83721; 84443; 85025

== ENCOUNTER 2023-11-27 07:05 | Outpatient (CLI) | payer MEDICARE, OTHER ==
[2023-11-27 15:39] LABS: CREATININE 0.5 mg/dL (0.6-1.3); POTASSIUM 4.3 mmol/L (3.5-4.5)
[2023-11-27 15:57] LABS: CREATININE,URINE 33.3 mg/dL
[2023-11-27 15:58] LABS: MICROALBUMIN,URINE < 0.7 mg/dL
[2023-11-27 17:45] LABS: ESTIMATED AVERAGE GLUCOSE 105 mg/dL (70-100); HEMOGLOBIN A1c% 5.3 % (4.27-6.07)
== END 2023-11-27 07:06 | disposition home or self-care (01) ==
LOC: LAB.S 07:05
PROVIDERS: ATTEND Registered Nurse
DX: E10.649 Type 1 diabetes mellitus with hypoglycemia without coma (principal)
CPT/HCPCS: 36415; 80048; 82043; 82570; 83036